=== PATIENT | female | born 1970 ===

== ENCOUNTER 2020-07-06 14:09 | Outpatient (REF) | payer OTHER, SELFPAY ==
[2020-07-06 14:31] LABS: COVID-19 Test Negative (Negative); IDNOW Serial# 55D5AD1C
== END 2020-07-06 14:10 | disposition home or self-care (01) ==
LOC: HO.EMPCOV 14:09
PROVIDERS: Visit Provider Internal Medicine
DX: Z20.822 Contact with and (suspected) exposure to COVID-19 (principal)
CPT/HCPCS: 36415; 87635; C9803

== ENCOUNTER 2020-07-12 14:09 | Emergency (ER) | payer MEDICAID, SELFPAY ==
[2020-07-12 14:16] VITALS: BP 147/90; PULSE 87; RESP 16; TEMP 36.8; O2SAT 100; BMI 31.2
== END 2020-07-12 18:22 | disposition left against medical advice (07) ==
PROVIDERS: Emergency Provider Emergency Medicine; PCP Internal Medicine
DX: R20.0 Anesthesia of skin (principal)
CPT/HCPCS: 99282

== ENCOUNTER 2020-08-01 11:13 | Outpatient (REF) | payer OTHER, SELFPAY ==
[2020-08-01 12:14] LABS: COVID-19 Test Negative (Negative)
== END 2020-08-01 11:14 | disposition home or self-care (01) ==
LOC: HO.EMPCOV 11:13
PROVIDERS: Visit Provider Internal Medicine
DX: Z20.822 Contact with and (suspected) exposure to COVID-19 (principal)
CPT/HCPCS: 36415; 87635; C9803

== ENCOUNTER 2020-08-02 15:45 | Outpatient (REF) | payer MEDICAID, SELFPAY | END 2020-08-02 15:46 | disposition home or self-care (01) | LOC: HO.MDS 15:45 | PROVIDERS: PCP Internal Medicine; Visit Provider Psychiatry & Neurology Neurology | DX: G37.3 Acute transverse myelitis in demyelinating disease of central nervous system (principal) | CPT/HCPCS: 96365; J2930 ==

== ENCOUNTER 2020-08-03 06:51 | Outpatient (REF) | payer MEDICAID, SELFPAY | END 2020-08-03 06:52 | disposition home or self-care (01) | LOC: HO.MDS 06:51 | PROVIDERS: Visit Provider Psychiatry & Neurology Neurology | DX: G37.3 Acute transverse myelitis in demyelinating disease of central nervous system (principal) | CPT/HCPCS: 96365; J2930 ==

== ENCOUNTER 2020-08-04 07:02 | Outpatient (REF) | payer MEDICAID, SELFPAY ==
[2020-08-04 09:58] LABS: Blood Urea Nitrogen 25 mg/dL (9-16); Estimated Glomerular Filt Rate > 60
== END 2020-08-04 07:03 | disposition home or self-care (01) ==
LOC: HO.MDS 07:02
PROVIDERS: PCP Internal Medicine; Visit Provider Psychiatry & Neurology Neurology
DX: G37.3 Acute transverse myelitis in demyelinating disease of central nervous system (principal)
CPT/HCPCS: 36415; 82565; 84520; 96365; J2930

== ENCOUNTER 2020-08-09 08:13 | Outpatient (REF) | payer OTHER, SELFPAY ==
[2020-08-09 08:31] LABS: COVID-19 Test Negative (Negative)
== END 2020-08-09 08:14 | disposition home or self-care (01) ==
LOC: HO.EMPCOV 08:13
PROVIDERS: Visit Provider Internal Medicine
DX: Z20.822 Contact with and (suspected) exposure to COVID-19 (principal)
CPT/HCPCS: 36415; 87635; C9803

== ENCOUNTER 2020-08-14 17:48 | Outpatient (REF) | payer OTHER, SELFPAY ==
--- NOTE | ~2020-08-14 | MR_ITS ---
MRI CERVICAL AND THORACIC SPINE WITH AND WITHOUT IV CONTRAST CLINICAL INFORMATION: Transverse myelitis. COMPARISON: Cervical spine radiographs 01/17/2020. Thoracic spine radiographs 04/16/2013. TECHNIQUE: Multiplanar multisequence MR imaging of the cervical and thoracic spine obtained without and following the administration of 10 mL of Gadavist intravenous contrast without complication. FINDINGS: CERVICAL SPINE MRI: Straightening the cervical lordosis. Mild retrosubluxation of C5 on C6. There is no bone marrow edema. There are no acute fractures. Craniocervical junction is intact. There are no enhancing intraosseous lesions. There is no pathologic intrathecal enhancement. Cervical arterial flow voids are maintained. No significant soft tissue findings. C2-C3: Slight annular disc bulge. No central canal stenosis and no foraminal stenosis. C3-C4: Small annular disc bulge. Uncovertebral joint spurring and facet arthropathy result in mild bilateral foraminal encroachment. No central canal stenosis. C4-C5: Shallow central disc protrusion flattens the ventral cord resulting in mild to moderate central canal stenosis. Uncovertebral joint hypertrophy and hypertrophic facet arthropathy result in severe left and moderate right foraminal stenosis. C5-C6: Broad-based central disc protrusion and ligamentum flavum thickening as well as retrosubluxation result in severe central canal stenosis and mass effect on the cervical spinal cord. Intramedullary T2 signal changes within the cord at this level. No associated enhancement. C6-C7: Shallow central disc protrusion mildly narrows the central canal. No foraminal stenosis. C7-T1: Disc contour is normal. No central canal stenosis and no foraminal stenosis. THORACIC SPINE MRI: Partially enhancing intramedullary T2 signal changes involving the thoracic spinal cord at the T2-T3 level. This finding is nonspecific with differential considerations including transverse myelitis, and otherwise nonspecific demyelinating lesion, or variety alternative intramedullary pathology. Follow-up advised. Moderate disc volume loss of the mid to lower thoracic levels. There is no bone marrow edema. There are no acute fractures. Multilevel endplate osteophytes. There are paracentral disc protrusions throughout the entire thoracic spine, the largest at the T5-T6, T7-T8, T8-T9, T9-T10, T10-T11, and T11-T12 levels that mildly narrow the central canal and slightly flatten the ventral cord at these levels. Disc osteophyte and facet arthropathy result in severe left-sided foraminal stenosis at T10-T11. MR/MR cervical spine wo/w con IMPRESSION: - Multilevel cervical spondylosis, greatest at C5-C6 where retrosubluxation and multifactorial degenerative changes result in severe central canal stenosis and significant mass effect on the cervical cord. There are intramedullary T2 signal changes within the cord at this level of indeterminate age. No associated enhancement. 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 - Partially enhancing intramedullary T2 signal changes involving the thoracic spinal cord at the T2-T3 level. This finding is nonspecific with differential considerations including transverse myelitis, and otherwise nonspecific demyelinating lesion, or variety alternative intramedullary pathology. Follow-up advised. - There are paracentral disc protrusions throughout the entire thoracic spine, the largest at the T5-T6, T7-T8, T8-T9, T9-T10, T10-T11, and T11-T12 levels that mildly narrow the central canal and slightly flatten the ventral cord at these levels. Disc osteophyte and facet arthropathy result in severe left-sided foraminal stenosis at T10-T11.
== END 2020-08-14 17:49 | disposition home or self-care (01) ==
LOC: HO.MRI 17:48
PROVIDERS: PCP Internal Medicine; Visit Provider Psychiatry & Neurology Neurology
DX: G37.3 Acute transverse myelitis in demyelinating disease of central nervous system (principal)
CPT/HCPCS: 72156; 72157; A9585

== ENCOUNTER 2020-08-29 08:09 | Outpatient (REF) | payer OTHER, SELFPAY ==
[2020-08-29 08:21] LABS: COVID-19 Test Positive (Negative)
== END 2020-08-29 08:10 | disposition home or self-care (01) ==
LOC: HO.EMPCOV 08:09
PROVIDERS: Visit Provider Internal Medicine
DX: Z20.822 Contact with and (suspected) exposure to COVID-19 (principal)
CPT/HCPCS: 36415; 87635; C9803

== ENCOUNTER 2020-09-14 16:18 | Outpatient (REF) | payer OTHER, SELFPAY ==
--- NOTE | ~2020-09-14 | MR_ITS ---
EXAMINATION: MR BRAIN WITHOUT AND WITH CONTRAST CLINICAL INFORMATION: Demyelinating disease. COMPARISON: CT head 03/29/2014, MRI brain 02/09/2007, MRI cervical spine 08/14/2020. TECHNIQUE: Multiplanar, multisequence MRI of the brain was obtained before and after the intravenous administration of 10 mL Gadavist. Demyelinating protocol sequences are obtained including sagittal FLAIR images. FINDINGS: A 9 mm x 2 mm nonenhancing juxtacortical T2 hyperintensity is present in the posterior left middle frontal lobe gyrus (series 6 image 17). Single punctate nonenhancing T2 hyperintensities (less than 3 mm) are present in the juxtacortical white matter of the left inferior frontal lobe and posterior right middle frontal lobe gyrus. 2 punctate nonenhancing T2 hyperintensities are present in the right inferior frontal lobe. No perivenular lesions are visualized. No lesions of the middle cerebellar peduncles are noted. No intracranial hemorrhage, tumors or acute infarcts are visualized. The ventricles and sulci are normal in size and configuration. Susceptibility weighted images reveal no evidence of acute or chronic hemorrhage within the brain parenchyma. The craniocervical junction and cerebellar tonsils are normal in configuration. No suspicious marrow abnormalities are identified. Partial visualization is made of minimal anterior endplate osteophytosis at C3-C4 and C4-C5. Convex inward configuration of the superior margin the pituitary is present consistent with an empty sella configuration which is a frequently encountered normal anatomic variation. Normal flow-related signal intensity is visualized in the major intracranial vessels and dural sinuses. The orbits and globes are normal in appearance making allowances for expected artifacts. No significant mucosal thickening or retained secretions are noted within the visualized paranasal sinuses, mastoid air cells and middle ear cavities. No abnormal enhancement of the brain is identified. MR/MR head/brain wo/w con IMPRESSION: 1. Minimal number of scattered nonenhancing punctate and subcentimeter white matter foci of signal alteration (T2 hyperintensity). These findings are of uncertain clinical significance and may represent minimal white matter chronic small vessel ischemic changes. Similar findings are a frequently encountered asymptomatic finding and are therefore of uncertain clinical significance. No specific evidence of demyelinating disease. No perivenular lesions or lesions of the middle cerebellar peduncles. Unenhanced and IV contrast enhanced MRI of the brain is otherwise normal.
== END 2020-09-14 16:19 | disposition home or self-care (01) ==
LOC: HO.MRI 16:18
PROVIDERS: Visit Provider Psychiatry & Neurology Neurology
DX: G37.9 Demyelinating disease of central nervous system, unspecified (principal)
CPT/HCPCS: 70553; A9585

== ENCOUNTER 2021-04-17 09:36 | Outpatient (REF) | payer OTHER, SELFPAY | END 2021-04-17 09:37 | disposition home or self-care (01) | LOC: HO.LAB 09:36 | PROVIDERS: Visit Provider Internal Medicine | DX: Z20.822 Contact with and (suspected) exposure to COVID-19 (principal) | CPT/HCPCS: C9803; U0003; U0005 ==

== ENCOUNTER 2022-10-19 03:08 | Emergency (ER) | payer OTHER, SELFPAY ==
[2022-10-19 03:09] VITALS: BP 132/77; PULSE 82; RESP 18; TEMP 36.1; O2SAT 96; BMI 36.7
[2022-10-19 04:20] VITALS: BP 115/66; PULSE 82; RESP 18; TEMP 36.7; O2SAT 96
[2022-10-19 04:48] LABS: MANUAL DIFF FLAG NO
[2022-10-19 04:49] LABS: Basophils Percent Auto 0.4 % (0-2); Eosinophils Absolute Auto 0.3 X10*3/uL (0.0-0.4); Eosinophils Percent Auto 2.7 % (0-4); Hemoglobin 12.2 g/dl (12.0-16.0); Imm Gran Abs Auto 0.03 X10*3/uL (0.00-0.03); Imm Gran Pct Auto 0.3 % (0.0-0.4); Lymphocytes Absolute Auto 2.5 X10*3/uL (1.2-4.9); Lymphocytes Percent Auto 24.9 % (20-40); Mean Corpuscular HGB Conc 33.9 g/dl (31.0-35.0); Mean Corpuscular Hemoglobin 29.1 pg (27.0-33.0); Mean Corpuscular Volume 85.9 fL (80.0-98.0); Mean Platelet Volume 10.5 fL (9.4-12.3); Monocytes Absolute Auto 0.9 X10*3/uL (0.1-1.2); Monocytes Percent Auto 8.7 % (2-11); Neutrophils Absolute Auto 6.3 x10*3/uL (2.0-8.3); Platelet Count 316 X10*3/uL (160-400); Red Blood Count 4.19 X10*6/uL (4.20-5.50); Red Cell Distribution Width 13.6 % (11.0-16.0)
[2022-10-19 04:56] LABS: Appearance Urine Clear; Color Urine Yellow; Glucose Urine UA Negative (Negative); Leukocyte Esterase Urine Negative (Negative); Nitrite Urine Negative (Negative); PH 5.5 (5.0-9.0); Specific Gravity - Urine >= 1.030 (1.005-1.025); UMIC TRIGGER UACC YES; Urine Blood Large (3+) (Negative); Urine Ketones Negative (Negative); Urine Protein Trace mg/dL (Neg-Trace)
[2022-10-19 04:59] LABS: Bacteria Urine 1+ (None Seen); Hyaline Casts Urine 0-2 /LPF (0-2); RBC Urine >20 /HPF (0-2); WBC Urine 0-5 /HPF (0-5)
[2022-10-19 05:02] LABS: Anion Gap 15 (12-20); Blood Urea Nitrogen 18 mg/dL (9-16); Calcium 10.4 mg/dL (8.4-10.2); Carbon Dioxide 26 mmol/L (22-29); Chloride 104 mmol/L (96-108); Creatinine Clr Calc Pharmacy 97.9; Estimated Glomerular Filt Rate > 60; Glucose Random 123 mg/dL (60-115); Potassium 3.7 mmol/L (3.3-5.1); Sodium 141 mmol/L (135-145)
--- NOTE | 2022-10-19 05:29 | PC.NURSE ---
Pt A&Ox4, reports constant pressure pain 8/10 to lower ABD pain radiating to L flank. Reports urinary frequency & urgency feeling bloated . Pt denies any fevers, reports some nausea, no V/D.
[2022-10-19 06:03] VITALS: BP 119/74; PULSE 76; RESP 18; TEMP 36.8; O2SAT 95
--- NOTE | 2022-10-19 06:35 | ED.FEMALEGU ---
HPI - Female Genitourinary General Chief complaint: Urogenital-Female Stated complaint: uti symptoms, back pain Time Seen by Provider: 10/19/22 06:34 Source: patient, RN notes reviewed and old records reviewed Mode of arrival: ambulatory History of Present Illness HPI Narrative: 52-year-old female past medical history hypertension, hypothyroid presenting to the ED complaining of lower abdominal/suprapubic pain, & urinary hesitancy/frequency x3 days. reports pain is constant but fluctuating in intensity with associated nausea. Denies fever, chills, vomiting, dysuria/hematuria Related Data Previous Rx's Medication Instructions Recorded gabapentin 300 mg capsule 300 mg PO BID 2 weeks #28 caps 07/15/20 cefuroxime axetil 250 mg tablet 250 mg PO BID 3 days #6 tabs 10/19/22 ketorolac 10 mg tablet 10 mg PO TID PRN pain 5 days #15 10/19/22 tabs tamsulosin 0.4 mg capsule (Flomax) 0.4 mg PO DAILY #14 caps 10/19/22 Allergies Allergy/AdvReac Type Severity Reaction Status Date / Time Iodinated Contrast Media Allergy Severe ITCHING; Unverified 01/06/20 14:39 [IV Dye, Iodine Containing] SEVERE VOMITING Review of Systems Review of Systems: Constitutional: No Fever, No Chills, No Fatigue, No Malaise ENT/Mouth: No Ear Pain, No sore throat, No Rhinorrhea, No Swallowing Difficulty Eyes: No Eye Pain, No Swelling, No Redness, No Vision Changes Cardiovascular: No Chest Pain, No SOB, No Edema, No Palpitations Respiratory: No Cough, No Sputum, No Dyspnea Gastrointestinal: + Nausea, No Vomiting, No Diarrhea, No Constipation, No Abdominal pain Genitourinary: No Dysuria, + Urinary Frequency, No Hematuria, No Urinary Incontinence/retention, + Urgency, No Flank Pain, No Urinary Flow Changes, + Hesitancy Musculoskeletal: No joint pain, No Myalgias, No Joint Swelling Skin: No Skin Lesions, No rash Neuro: No Weakness, No Dizziness, No Headache Yes all other systems are reviewed and are negative Constitutional: Constitutional: Reports as per [facility] Past Medical History Attestation statement: The following information was validated with the patient. Source: old records reviewed Medical History HTN (hypertension) Hyperthyroidism Social History Social History Alcohol intake: current Alcohol intake frequency: holidays/special occasions only Smoked in Last 30 Days: Yes Use of substances other than those prescribed or required for medical reasons: No Advance Directives: No Advance Directives Information Provided: Yes Patient : No Physical Exam Vital Signs: Vital Signs: Last Vital Signs Temp 97.9 F 10/19/22 07:03 Pulse 69 10/19/22 08:53 Resp 14 10/19/22 08:53 BP 118/76 10/19/22 08:53 Pulse Ox 95 10/19/22 08:53 O2 Del Method Room Air 10/19/22 08:53 BMI result Body Mass Index 36.7 Const: General: cooperative, healthy appearing and no acute distress Orientation/consciousness: patient oriented x3 Limitations: no limitations HEENT: Head: Yes normal to inspection and Yes atraumatic Ears: hearing grossly normal bilaterally General nose exam: Normal external nose present Face and sinus: Yes normal facial exam Eyes: General: appearance normal, both eyes and all related structures EOM: EOMs intact bilaterally Neck: Neck: Yes normal visual inspection and Yes no meningeal signs Resp: Effort & Inspection: normal respiratory effort and no respiratory distress Cardio: Rate: regular rate Heart sounds: S1 normal heart sound present and S2 normal heart sound present GI: Inspection: Yes normal to inspection Palpation (GI): Soft to palpation, Tenderness to palpation present (GI) suprapubicly; with no rebound tenderness, no guarding and not rigid : General: Yes no CVA tenderness Back/Spine/Pelvis: Back: no CVA tenderness Skin: Rashes: no rashes Wounds: no wounds Neuro: General: patient oriented x3, tone normal and no meningeal signs Gait exam (Neuro): Normal gait present Extrem: General: Yes normal to inspection Course Course Course Narrative: -0807--labs reassuring. UA with blood/RBCs, not infected CT abdomen pelvis wo IV con IMPRESSION: 4 mm partially obstructing left ureterovesical junction calculus with mild left hydronephrosis.? ? Fleischner guidelines were followed. > on re-evaluation patient appears comfortable, sleeping, states feels the urge to be however cannot urinate will obtain bladder scan -1 cc on bladder scan. Case discussed with Urology, Dr. Noel who recommended in addition to Toradol/Flomax, Ceftin 250 b.i.d. x3 days and follow-up in the office Results discussed with patient including worrisome signs and symptoms and strict return precautions, and when to return to the emergency department. They verbalized understanding and feel safe for discharge at this time. Medications Administered Discontinued Medications Generic Name Dose Route Start Last Admin Trade Name Freq PRN Reason Stop Dose Admin Ketorolac Tromethamine 30 mg 10/19/22 08:08 10/19/22 08:26 Ketorolac Tromethamine 30 Mg/Ml Vial IM 10/19/22 08:09 30 mg ONCE ONE Administration Tamsulosin HCl 0.4 mg 10/19/22 08:08 10/19/22 08:27 Tamsulosin Hcl 0.4 Mg Capsule PO 10/19/22 08:09 0.4 mg ONCE ONE Administration Medical Decision Making Medical Decision Making [facility] Narrative: 52-year-old female past medical history hypertension, hypothyroid presenting to the ED complaining of lower abdominal/suprapubic pain, & urinary hesitancy/frequency x3 days. On exam vital signs stable, NAD, nontoxic appearing, abdomen soft with mild suprapubic tenderness, no rebound or guarding, no CVAT. Concern for renal stone vs UTI/pyelo. Lower suspicion for appendicitis/diverticulitis, pancreatitis or cholecystitis/lithiasis Plan: Labs, UA, CT AP Please refer to course for remaining clinical decision making, interpretation of labs/imaging results, and discussions with consultants and/or family members. Differential Diagnosis Differential Diagnoses: The differential diagnosis associated with the presentation includes As above Admission/Observation Consideration of admission/observation: Escalation of care including admission/observation considered Lab Data [facility] Lab Attestation statement: I reviewed the patient's lab results. 10/19/22 04:43 10/19/22 04:43 Labs: Lab Results 10/19/22 10/19/22 10/19/22 Range/Units 04:43 04:43 04:50 WBC 10.0 (4.8-10.8) X10*3/uL RBC 4.19 L (4.20-5.50) X10*6/uL Hgb 12.2 (12.0-16.0) g/dl Hct 36.0 L (37.0-47.0) % MCV 85.9 (80.0-98.0) fL MCH 29.1 (27.0-33.0) pg MCHC 33.9 (31.0-35.0) g/dl RDW 13.6 (11.0-16.0) % Plt Count 316 (160-400) X10*3/uL MPV 10.5 (9.4-12.3) fL Immature Gran % (Auto) 0.3 (0.0-0.4) % Neut % (Auto) 63.0 (45-73) % Lymph % (Auto) 24.9 (20-40) % [place] % (Auto) 8.7 (2-11) % Eos % (Auto) 2.7 (0-4) % Baso % (Auto) 0.4 (0-2) % Lymph # (Auto) 2.5 (1.2-4.9) X10*3/uL [place] # (Auto) 0.9 (0.1-1.2) X10*3/uL Eos # (Auto) 0.3 (0.0-0.4) X10*3/uL Baso # (Auto) 0.0 (0.0-0.2) X10*3/uL Abs Immat Gran (auto) 0.03 (0.00-0.03) X10*3/uL Absolute Neuts (auto) 6.3 (2.0-8.3) x10*3/uL Absolute Nucleated RBC 0.000 (0.0-0.012) X10*3/uL Nucleated RBC % (auto) 0.0 (0.0-0.2) /100WBC Sodium 141 (135-145) mmol/L Potassium 3.7 (3.3-5.1) mmol/L Chloride 104 (96-108) mmol/L Carbon Dioxide 26 (22-29) mmol/L Anion Gap 15 (12-20) BUN 18 H (9-16) mg/dL Creatinine 0.76 (0.5-1.4) mg/dL Estim Creat Clear Calc 97.9 Estimated GFR > 60 Random Glucose 123 H (60-115) mg/dL Calcium 10.4 H (8.4-10.2) mg/dL Magnesium 1.8 (1.6-2.6) mg/dL Total Bilirubin 0.4 (0.0-1.0) mg/dL Direct Bilirubin 0.1 (0.0-0.5) mg/dL AST 14 (5-31) U/L ALT 20 (0-31) U/L Alkaline Phosphatase 88 (39-117) U/L Total Protein 7.1 (6.5-8.0) g/dL Albumin 4.2 (3.5-5.0) g/dL Lipase 36 (8-78) U/L Urine Color Yellow Urine Appearance Clear Urine pH 5.5 (5.0-9.0) Ur Specific [place] >= 1.030 H (1.005-1.025) Urine Protein Trace (Neg-Trace) mg/dL Urine Glucose (UA) Negative (Negative) mg/dL Urine Ketones Negative (Negative) mg/dL Urine Blood Large (3+) H (Negative) Urine Nitrite Negative (Negative) Ur Leukocyte Esterase Negative (Negative) Urine RBC >20 H (0-2) /HPF Urine WBC 0-5 (0-5) /HPF Ur Squamous Epith Cells 6-10 (0-2) /HPF Urine Bacteria 1+ (None Seen) Hyaline Casts 0-2 (0-2) /LPF Chlam trachomat DNA PCR N.gonorrhoeae DNA (PCR) 10/19/22 Range/Units 04:53 WBC (4.8-10.8) X10*3/uL RBC (4.20-5.50) X10*6/uL Hgb (12.0-16.0) g/dl Hct (37.0-47.0) % MCV (80.0-98.0) fL MCH (27.0-33.0) pg MCHC (31.0-35.0) g/dl RDW (11.0-16.0) % Plt Count (160-400) X10*3/uL MPV (9.4-12.3) fL Immature Gran % (Auto) (0.0-0.4) % Neut % (Auto) (45-73) % Lymph % (Auto) (20-40) % [place] % (Auto) (2-11) % Eos % (Auto) (0-4) % Baso % (Auto) (0-2) % Lymph # (Auto) (1.2-4.9) X10*3/uL [place] # (Auto) (0.1-1.2) X10*3/uL Eos # (Auto) (0.0-0.4) X10*3/uL Baso # (Auto) (0.0-0.2) X10*3/uL Abs Immat Gran (auto) (0.00-0.03) X10*3/uL Absolute Neuts (auto) (2.0-8.3) x10*3/uL Absolute Nucleated RBC (0.0-0.012) X10*3/uL Nucleated RBC % (auto) (0.0-0.2) /100WBC Sodium (135-145) mmol/L Potassium (3.3-5.1) mmol/L Chloride (96-108) mmol/L Carbon Dioxide (22-29) mmol/L Anion Gap (12-20) BUN (9-16) mg/dL Creatinine (0.5-1.4) mg/dL Estim Creat Clear Calc Estimated GFR Random Glucose (60-115) mg/dL Calcium (8.4-10.2) mg/dL Magnesium (1.6-2.6) mg/dL Total Bilirubin (0.0-1.0) mg/dL Direct Bilirubin (0.0-0.5) mg/dL AST (5-31) U/L ALT (0-31) U/L Alkaline Phosphatase (39-117) U/L Total Protein (6.5-8.0) g/dL Albumin (3.5-5.0) g/dL Lipase (8-78) U/L Urine Color Urine Appearance Urine pH (5.0-9.0) Ur Specific [place] (1.005-1.025) Urine Protein (Neg-Trace) mg/dL Urine Glucose (UA) (Negative) mg/dL Urine Ketones (Negative) mg/dL Urine Blood (Negative) Urine Nitrite (Negative) Ur Leukocyte Esterase (Negative) Urine RBC (0-2) /HPF Urine WBC (0-5) /HPF Ur Squamous Epith Cells (0-2) /HPF Urine Bacteria (None Seen) Hyaline Casts (0-2) /LPF Chlam trachomat DNA PCR Cancelled N.gonorrhoeae DNA (PCR) Cancelled Radiology Impression Discussion of test interpretation with radiology: I have reviewed the radiologist's reading. External Record Review External record reviewed: Inpatient record, Office record, Outpatient record, Prior outpatient labs, Prior outpatient radiology, Primary care record and Outside ED record Tests considered The following testing was considered but not selected: As above Discharge Plan Discharge Clinical Impression: Calculus of ureterovesical junction (UVJ) Patient Disposition: Home, Self-Care Instructions: Ureteral Stones (ED) Additional Instructions: You have a partially obstructing stone of her left kidney Flomax will help dilate the ureter to aid with passing Toradol as anti-inflammatory/pain medication, take with food Ceftin is an antibiotic Need to follow-up with the specialists, urology, in 1 week His symptoms persist or worsen you develop constant worsening pain, persistent nausea/vomiting, fever, or your unable to urinate return to the ED Prescriptions: New cefuroxime axetil 250 mg tablet 250 mg PO BID 3 Days Qty: 6 0RF ketorolac 10 mg tablet 10 mg PO TID PRN (Reason: pain) 5 Days Qty: 15 0RF tamsulosin [Flomax] 0.4 mg capsule 0.4 mg PO DAILY Qty: 14 0RF No Action gabapentin 300 mg capsule 300 mg PO BID 14 Days Qty: 28 0RF Referrals: [facility] [Provider Group] Interventions: ED Discharge Assessment Last Done: 10/19/22 10:08 Discharge Date/Time: 10/19/22 10:08
[2022-10-19 07:00] LABS: Alanine Aminotransferase 20 U/L (0-31); Albumin Level 4.2 g/dL (3.5-5.0); Alkaline Phosphatase 88 U/L (39-117); Aspartate Amino Transferase 14 U/L (5-31); Bilirubin Direct 0.1 mg/dL (0.0-0.5); Bilirubin Total 0.4 mg/dL (0.0-1.0); Lipase 36 U/L (8-78); Magnesium 1.8 mg/dL (1.6-2.6); Total Protein 7.1 g/dL (6.5-8.0)
[2022-10-19 07:03] VITALS: BP 126/73; PULSE 81; RESP 18; TEMP 36.6; O2SAT 99
--- NOTE | 2022-10-19 07:15 | PC.NURSE ---
pt alert and oriented, skin appropriate for ethnicity, respirations even and unlabored, pt reports frequency/urgency/pressure when she need to void but when voiding only few drops come out, abd appears slightly distended/firm but reports no pain at this time. performed a bladder scan and 174ml of urine post voided. vs stable at this time
[2022-10-19] MEDS: Ketorolac Tromethamine 30 MG/ML VIAL IM (08:26)
[2022-10-19] MEDS: Tamsulosin HCL 0.4 MG CAPSULE PO (08:27)
[2022-10-19 08:53] VITALS: BP 118/76; PULSE 69; RESP 14; O2SAT 95
== END 2022-10-19 10:08 | disposition home or self-care (01) ==
PROVIDERS: Physician Assistant; Emergency Provider Emergency Medicine Emergency Medical Services; PCP Internal Medicine
DX: N13.2 Hydronephrosis with renal and ureteral calculous obstruction (principal); I10 Essential (primary) hypertension
CPT/HCPCS: 0353U; 36415; 51798; 74176; 80048; 80076; 81001; 83690; 83735; 85025; 96372; 99284; 99285; J1885

== ENCOUNTER 2022-11-07 10:43 | Emergency (ER) | payer OTHER, SELFPAY ==
[2022-11-07 10:51] VITALS: BMI 40.0
== END 2022-11-07 11:12 | disposition left against medical advice (07) ==
PROVIDERS: Emergency Provider Emergency Medicine; PCP Internal Medicine
DX: R22.1 Localized swelling, mass and lump, neck (principal)
CPT/HCPCS: 99281

== ENCOUNTER 2022-11-07 16:11 | Emergency (ER) | payer OTHER, SELFPAY ==
--- NOTE | ~2022-11-07 | US_ITS ---
EXAMINATION: US SOFT TISSUE NECK CLINICAL INFORMATION: Pain and swelling right sublingual region. COMPARISON: None available. TECHNIQUE: Limited ultrasound imaging of right sublingual region is performed.. FINDINGS: There is a 0.6 x 0.7 x 0.5 cm lymph nodes seen in the right sublingual space. No additional lymph nodes seen. Bilateral submandibular glands are slightly heterogeneous and hypervascular. No focal lesion seen. US/US soft tiss head and/or neck IMPRESSION: 1. Benign-appearing lymph node in right sublingual space. Bilateral submandibular glands are symmetrical but slightly heterogeneous. 2. If clinically indicated further evaluation of the neck soft tissues and nodes may be performed with CT soft tissue neck with intravenous contrast.
--- NOTE | ~2022-11-07 | CT_ITS ---
EXAMINATION: CT ABDOMEN AND PELVIS WITHOUT CONTRAST CLINICAL INFORMATION: Flank pain. COMPARISON: CT abdomen/pelvis 10/19/2022. TECHNIQUE: Multidetector volumetric imaging was performed from the superior aspect of the liver through the pubic symphysis. Sagittal and coronal reformatted images were obtained on the technologist's workstation. This CT examination was performed using dose optimization techniques as appropriate, variously including the following: *Automated exposure control *Adjustment of mA and/or kV according to patient size (this includes techniques or standardized protocols for targeted exams where dose is matched to indication/reason for exam; i.e. extremities or head) *Use of iterative reconstruction technique DLP: 686 mGy-cm FINDINGS: The lack of intravenous contrast limits evaluation of the solid visceral organs including the liver, spleen, pancreas, and kidneys. LUNG BASES: There is a 0.2 cm solid nodule in the right lower lobe image 69 series 3. There are a few tiny calcified granulomas. No focal consolidation or pleural effusion. LIVER, GALLBLADDER, AND BILIARY TREE: The liver is enlarged measuring 19.6 cm craniocaudally with decreased attenuation of the parenchyma suggesting hepatic steatosis. Otherwise, it is normal in shape with no discrete focal lesion. No biliary ductal dilatation. The gallbladder is unremarkable with no evidence of radiopaque gallstones, gallbladder wall thickening, or obvious pericholecystic inflammatory changes. PANCREAS: Limited noncontrast examination. Subtle fat stranding at the root of the small bowel mesentery, coronal image 51 series 5. SPLEEN: Unremarkable. ADRENAL GLANDS: Unremarkable. KIDNEYS AND URETERS: Nonobstructive punctate calculus in the mid left kidney. No hydronephrosis or perinephric fat stranding. BLADDER: Unremarkable. GASTROINTESTINAL TRACT: The stomach and the small bowel are nondilated. Normal appendix. No pericolonic inflammatory changes. No evidence of bowel obstruction. ABDOMINAL WALL: No significant hernia is appreciated. LYMPH NODES: No lymphadenopathy. VASCULAR: Normal caliber abdominal aorta. PELVIC VISCERA: Hysterectomy. High riding ovaries. OSSEOUS STRUCTURES: No acute or aggressive appearing osseous abnormalities. CT/CT abdomen pelvis wo IV con IMPRESSION: 1. Subtle fat stranding at the root of the small bowel mesentery which is fairly nonspecific but could be seen with early pancreatitis, correlate clinically. 2. Nonobstructive punctate calculus in the mid left kidney. 3. Hepatomegaly and hepatic steatosis. 4. There is a 0.2 cm solid nodule in the right lower lobe. Assuming patient has no history of malignancy, recommend follow-up per Fleischner Society recommendations. According to the UPDATED 2017 Fleischner Society recommendations, the advised followup imaging for solid nodules < 6 mm is: LOW RISK PATIENT: No routine follow up. HIGH RISK PATIENT: Optional CT at 12 months. Fleischner guidelines were followed.
[2022-11-07 16:37] VITALS: BP 149/91; PULSE 89; RESP 18; TEMP 36.8; O2SAT 97; BMI 36.2
--- NOTE | 2022-11-07 16:38 | ED.GENADULT ---
HPI - General Adult General Chief complaint: General Medical Stated complaint: possible infection Time Seen by Provider: 11/07/22 20:35 Source: patient Mode of arrival: ambulatory Limitations: no limitations History of Present Illness HPI narrative: 52 year old female with PMH of kidney stones presenting today with a chief complaint of chills, bilateral lower back pain,swollen lymph node, and subjective fever, as well as a blister on her upper lip The patient reports feeling feverish for the past 3 days but denies taking temperature at home She admits to taking Tylenol early this morning but has not taken anything else throughout the day She was seen at [facility] on 10/19/2022 for calculus of ureterovesical junction and reports concern that she may have not passed the stone She denies hematuria, dysuria, urinary frequency or hesitancy She was referred to the ED by her PCP for concern for sepsis due to her previous obstructive uropathy and reported fevers Related Data Previous Rx's Medication Instructions Recorded gabapentin 300 mg capsule 300 mg PO BID 2 weeks #28 caps 07/15/20 cefuroxime axetil 250 mg tablet 250 mg PO BID 3 days #6 tabs 10/19/22 ketorolac 10 mg tablet 10 mg PO TID PRN pain 5 days #15 10/19/22 tabs tamsulosin 0.4 mg capsule (Flomax) 0.4 mg PO DAILY #14 caps 10/19/22 Allergies Allergy/AdvReac Type Severity Reaction Status Date / Time Iodinated Contrast Media Allergy Severe ITCHING; Verified 11/07/22 16:37 [IV Dye, Iodine Containing] SEVERE VOMITING Review of Systems Constitutional: Constitutional: Reports as per HPI, Reports chills, Reports fever(s), Reports headache(s) and Reports weakness ENT: Reports facial pain, Reports headache(s) and Reports lip swelling (Right upper lip blister) Comments: swollen submandibular lymph node Cardiovascular: Cardiovascular: Denies chest pain and Denies dyspnea Respiratory: Respiratory: Denies cough and Denies dyspnea Gastrointestinal: Gastrointestinal: Denies abdominal pain, Denies constipation, Denies diarrhea, Denies nausea and Denies vomiting Genitourinary: Genitourinary: Denies hematuria, Denies difficulty voiding, Denies dysuria, Denies pelvic pain, Denies urinary hesitancy and Denies urinary urgency Musculoskeletal: Musculoskeletal: Reports back pain and Denies stiffness Neurologic: Reports headache(s) and Reports weakness Allergic/Immunologic: Allergic/Immunologic: Reports lip swelling (Right upper lip blister) PMFSH Past Medical History Medical History HTN (hypertension) Hyperthyroidism Social History Social History Alcohol intake: current Alcohol intake frequency: holidays/special occasions only Advance Directives: No Advance Directives Information Provided: Yes Physical Exam ED Vital Signs: Vital Signs - 24 hr 11/07/22 16:37 11/07/22 20:31 Temperature 98.2 F 98.4 F Pulse Rate 89 81 Respiratory Rate 18 18 Blood Pressure 149/91 H 135/98 H Pulse Oximetry 97 99 Oxygen Delivery Method Room Air BMI result Body Mass Index 36.2 Const General: healthy appearing, comfortable, no acute distress, alert and awake Nutritional Appearance: well nourished Orientation/consciousness: patient oriented x3 HENMT Other: Cold sore with mild adjacent edema without erythema Head: Yes normocephalic and Yes atraumatic Teeth and gingiva: dentition normal Throat: Yes posterior oropharynx normal (No evidence of Steve's angina) Eyes Eyelids: Yes eyelids normal Conjunctivae: conjunctivae normal Sclerae: sclerae normal Corneas: corneas normal Pupils: Equal, round and reactive pupils present EOM: EOMs intact bilaterally Neck Other: swollen R submandibular lymoh node Neck: Yes anterior neck swelling, Yes tender and Yes submandibular swelling Resp Effort & Inspection: normal respiratory effort, able to speak in complete sentences, no audible wheezes and not labored Auscultation: clear to auscultation bilaterally GI Inspection: No distended Palpation (GI): Soft to palpation, not firm, Tenderness to palpation present (GI), no guarding and not rigid General: No no CVA tenderness Back/Spine/Pelvis Back: No no CVA tenderness and No back tenderness Cervical Spine: cervical ROM normal Skin General skin exam: no rashes or lesions noted and elasticity normal Lesions: no lesions Rashes: no rashes Neuro General: patient oriented x3 Cranial nerves: Yes Equal, round and reactive pupils present Extrem General: Yes full ROM Course Course Course Narrative: This is an RME: Additional HPI, ROS, PE not included below will be deferred to primary provider. This is a 52-year-old female, with a hx of ?hypertension, hypothyroid, and diabetes, presenting to the emergency department with complaints of bilateral low back pain, chills and fevers days. Patient was seen on 10/19/22 where she was diagnosed with a kidney stone, was discharged on cefuroxime, Toradol, and Flomax. She has completed these medications however reports that 3 days ago she started to have fevers, low back pain, and fever blister. Patient denies any urinary symptoms, headache, nausea and vomiting. She checked in at the emergency department today however her primary care physician called her and told her to come to his office. They did blood cultures at the appointment, denies any other blood work performed. She was told to come to the ER as they could not perform a CT scan. Plan: Labs, UA ordered. Reevaluation(s) Reevaluation #1: Discussed patient's workup with her, she has no evidence of obstructive uropathy, no evidence of sepsis. I discussed the 2 mm right lung nodule with the patient. Her CT scan shows mild fat stranding that could be concerning for early pancreatitis. The patient has no epigastric pain tenderness, nausea or vomiting. This is felt to be less likely. The patient's ultrasound shows a benign-appearing submandibular lymph node without concerning features. This was all discussed with the patient and she will follow-up with her PCP Time: 22:22 Medications Administered Discontinued Medications Generic Name Dose Route Start Last Admin Trade Name Freq PRN Reason Stop Dose Admin Ibuprofen 600 mg 11/07/22 22:00 11/07/22 22:13 Ibuprofen 600 Mg Tablet PO 11/07/22 22:01 600 mg ONCE ONE Administration Medical Decision Making Medical Decision Making [facility] Narrative: Patient has no significant leukocytosis, no left shift. Chemistry within normal limits, renal function within normal limits. Will get a CT scan of the abdomen pelvis per her PCP request. The patient is afebrile with stable vital signs, no evidence of sepsis Differential Diagnosis Viral Syndrome Sinusitis Cellulitis UTI Sepsis Pyelonephritis Cold sore Herpes simplex virus Lab Data [facility] Lab Attestation statement: I reviewed the patient's lab results. (No leukocytosis or significant anemia. No electrolyte abnormalities. Normal renal function) 11/07/22 16:58 11/07/22 16:58 Labs: Lab Results 11/07/22 11/07/22 11/07/22 Range/Units 16:49 16:49 16:58 WBC 10.0 (4.8-10.8) X10*3/uL RBC 4.76 (4.20-5.50) X10*6/uL Hgb 13.6 (12.0-16.0) g/dl Hct 41.0 (37.0-47.0) % MCV 86.1 (80.0-98.0) fL MCH 28.6 (27.0-33.0) pg MCHC 33.2 (31.0-35.0) g/dl RDW 13.2 (11.0-16.0) % Plt Count 390 (160-400) X10*3/uL MPV 10.8 (9.4-12.3) fL Immature Gran % (Auto) 0.5 H (0.0-0.4) % Neut % (Auto) 62.1 (45-73) % Lymph % (Auto) 26.8 (20-40) % Barnes % (Auto) 8.3 (2-11) % Eos % (Auto) 2.0 (0-4) % Baso % (Auto) 0.3 (0-2) % Lymph # (Auto) 2.7 (1.2-4.9) X10*3/uL Barnes # (Auto) 0.8 (0.1-1.2) X10*3/uL Eos # (Auto) 0.2 (0.0-0.4) X10*3/uL Baso # (Auto) 0.0 (0.0-0.2) X10*3/uL Abs Immat Gran (auto) 0.05 H (0.00-0.03) X10*3/uL Absolute Neuts (auto) 6.2 (2.0-8.3) x10*3/uL Absolute Nucleated RBC 0.000 (0.0-0.012) X10*3/uL Nucleated RBC % (auto) 0.0 (0.0-0.2) /100WBC Sodium (135-145) mmol/L Potassium (3.3-5.1) mmol/L Chloride (96-108) mmol/L Carbon Dioxide (22-29) mmol/L Anion Gap (12-20) BUN (9-16) mg/dL Creatinine (0.5-1.4) mg/dL Estim Creat Clear Calc Estimated GFR Random Glucose (60-115) mg/dL Calcium (8.4-10.2) mg/dL Total Bilirubin (0.0-1.0) mg/dL Direct Bilirubin (0.0-0.5) mg/dL AST (5-31) U/L ALT (0-31) U/L Alkaline Phosphatase (39-117) U/L Total Protein (6.5-8.0) g/dL Albumin (3.5-5.0) g/dL Urine Color Yellow Urine Appearance Clear Urine pH 6.5 (5.0-9.0) Ur Specific [place] 1.020 (1.005-1.025) Urine Protein Negative (Neg-Trace) mg/dL Urine Glucose (UA) Negative (Negative) mg/dL Urine Ketones Negative (Negative) mg/dL Urine Blood Negative (Negative) Urine Nitrite Negative (Negative) Ur Leukocyte Esterase Negative (Negative) Urine Test NEGATIVE (NEGATIVE) 11/07/22 Range/Units 16:58 WBC (4.8-10.8) X10*3/uL RBC (4.20-5.50) X10*6/uL Hgb (12.0-16.0) g/dl Hct (37.0-47.0) % MCV (80.0-98.0) fL MCH (27.0-33.0) pg MCHC (31.0-35.0) g/dl RDW (11.0-16.0) % Plt Count (160-400) X10*3/uL MPV (9.4-12.3) fL Immature Gran % (Auto) (0.0-0.4) % Neut % (Auto) (45-73) % Lymph % (Auto) (20-40) % Barnes % (Auto) (2-11) % Eos % (Auto) (0-4) % Baso % (Auto) (0-2) % Lymph # (Auto) (1.2-4.9) X10*3/uL Barnes # (Auto) (0.1-1.2) X10*3/uL Eos # (Auto) (0.0-0.4) X10*3/uL Baso # (Auto) (0.0-0.2) X10*3/uL Abs Immat Gran (auto) (0.00-0.03) X10*3/uL Absolute Neuts (auto) (2.0-8.3) x10*3/uL Absolute Nucleated RBC (0.0-0.012) X10*3/uL Nucleated RBC % (auto) (0.0-0.2) /100WBC Sodium 136 (135-145) mmol/L Potassium 3.9 (3.3-5.1) mmol/L Chloride 102 (96-108) mmol/L Carbon Dioxide 22 (22-29) mmol/L Anion Gap 16 (12-20) BUN 11 (9-16) mg/dL Creatinine 0.68 (0.5-1.4) mg/dL Estim Creat Clear Calc 108.5 Estimated GFR > 60 Random Glucose 108 (60-115) mg/dL Calcium 10.5 H (8.4-10.2) mg/dL Total Bilirubin 0.4 (0.0-1.0) mg/dL Direct Bilirubin 0.1 (0.0-0.5) mg/dL AST 15 (5-31) U/L ALT 20 (0-31) U/L Alkaline Phosphatase 86 (39-117) U/L Total Protein 7.8 (6.5-8.0) g/dL Albumin 4.7 (3.5-5.0) g/dL Urine Color Urine Appearance Urine pH (5.0-9.0) Ur Specific [place] (1.005-1.025) Urine Protein (Neg-Trace) mg/dL Urine Glucose (UA) (Negative) mg/dL Urine Ketones (Negative) mg/dL Urine Blood (Negative) Urine Nitrite (Negative) Ur Leukocyte Esterase (Negative) Urine Test (NEGATIVE) Independent Interpretation I performed an independent interpretation of an: CT Scan Radiology Impression Discussion of test interpretation with radiology: I have reviewed the radiologist's reading. Radiologist Impression: Subtle fat stranding at the root of the small bowel mesentery which is showing nonspecific but could be seen with early pancreatitis. Nonobstructive punctate calculus in the left mid kidney. Hepatomegaly. 2 mm right lower lung nodule Discharge Plan Discharge Clinical Impression: Cold sore, Lymphadenopathy Patient Disposition: Home, Self-Care Instructions: Lymphadenopathy (ED) Additional Instructions: You may continue to use Abreva for your cold sore The lymph node underneath her neck does not appear concerning and may be related to the cold sore Your CT scan showed a 2 mm right lung nodule that you may follow-up with your primary doctor You do have 1 very small kidney stone still in the left kidney that is not causing any issues We did not find any signs of active bacterial infection and you are not septic Follow-up with your primary doctor Use Motrin/Tylenol for pain. You may use warm compresses for the swollen lymph node Prescriptions: No Action cefuroxime axetil 250 mg tablet 250 mg PO BID 3 Days Qty: 6 0RF ketorolac 10 mg tablet 10 mg PO TID PRN (Reason: pain) 5 Days Qty: 15 0RF tamsulosin [Flomax] 0.4 mg capsule 0.4 mg PO DAILY Qty: 14 0RF gabapentin 300 mg capsule 300 mg PO BID 14 Days Qty: 28 0RF Stand Alone Forms: Work/School Release
[2022-11-07 16:58] LABS: UPreg QC Valid YES; Urine Pregnancy NEGATIVE (NEGATIVE)
[2022-11-07 17:00] LABS: Appearance Urine Clear; Color Urine Yellow; Glucose Urine UA Negative (Negative); Leukocyte Esterase Urine Negative (Negative); Nitrite Urine Negative (Negative); PH 6.5 (5.0-9.0); Urine Blood Negative (Negative); Urine Ketones Negative (Negative); Urine Protein Negative (Neg-Trace)
[2022-11-07 17:02] LABS: MANUAL DIFF FLAG NO
[2022-11-07 17:04] LABS: Basophils Percent Auto 0.3 % (0-2); Eosinophils Absolute Auto 0.2 X10*3/uL (0.0-0.4); Hemoglobin 13.6 g/dl (12.0-16.0); Imm Gran Abs Auto 0.05 X10*3/uL (0.00-0.03); Imm Gran Pct Auto 0.5 % (0.0-0.4); Lymphocytes Absolute Auto 2.7 X10*3/uL (1.2-4.9); Lymphocytes Percent Auto 26.8 % (20-40); Mean Corpuscular HGB Conc 33.2 g/dl (31.0-35.0); Mean Corpuscular Hemoglobin 28.6 pg (27.0-33.0); Mean Corpuscular Volume 86.1 fL (80.0-98.0); Mean Platelet Volume 10.8 fL (9.4-12.3); Monocytes Absolute Auto 0.8 X10*3/uL (0.1-1.2); Monocytes Percent Auto 8.3 % (2-11); Neutrophils Absolute Auto 6.2 x10*3/uL (2.0-8.3); Neutrophils Percent Auto 62.1 % (45-73); Platelet Count 390 X10*3/uL (160-400); Red Blood Count 4.76 X10*6/uL (4.20-5.50); Red Cell Distribution Width 13.2 % (11.0-16.0)
[2022-11-07 19:29] LABS: Alanine Aminotransferase 20 U/L (0-31); Albumin Level 4.7 g/dL (3.5-5.0); Alkaline Phosphatase 86 U/L (39-117); Anion Gap 16 (12-20); Aspartate Amino Transferase 15 U/L (5-31); Bilirubin Direct 0.1 mg/dL (0.0-0.5); Bilirubin Total 0.4 mg/dL (0.0-1.0); Blood Urea Nitrogen 11 mg/dL (9-16); Calcium 10.5 mg/dL (8.4-10.2); Carbon Dioxide 22 mmol/L (22-29); Chloride 102 mmol/L (96-108); Creatinine Clr Calc Pharmacy 108.5; Estimated Glomerular Filt Rate > 60; Glucose Random 108 mg/dL (60-115); Potassium 3.9 mmol/L (3.3-5.1); Sodium 136 mmol/L (135-145); Total Protein 7.8 g/dL (6.5-8.0)
[2022-11-07 20:31] VITALS: BP 135/98; PULSE 81; RESP 18; TEMP 36.9; O2SAT 99
[2022-11-07] MEDS: Ibuprofen 600 MG TABLET PO (22:13)
== END 2022-11-07 22:46 | disposition home or self-care (01) ==
PROVIDERS: Physician Assistant Medical; Emergency Provider Emergency Medicine; PCP Internal Medicine
DX: B00.1 Herpesviral vesicular dermatitis (principal); R59.1 Generalized enlarged lymph nodes; R91.8 Other nonspecific abnormal finding of lung field
CPT/HCPCS: 36415; 74176; 76536; 80048; 80076; 81003; 81025; 85025; 99283; 99284

== ENCOUNTER 2023-11-18 05:56 | Emergency (ER) | payer BC, SELFPAY ==
--- NOTE | ~2023-11-18 | XR_ITS ---
EXAMINATION: XR LUMBOSACRAL SPINE CLINICAL INFORMATION: Back pain COMPARISON: CT abdomen and pelvis of November 07, 2022 TECHNIQUE: Three views of the lumbosacral spine. FINDINGS: Mild rightward curvature of the lumbar spine. There are 5 nonrib-bearing lumbar-type vertebral bodies. Facet arthritis in the lower spine. Moderate multilevel lumbar spondylosis most notable at L5-S1 with loss of disc space height and possible spondylolysis. XR/XR lumbar spine 2-3V IMPRESSION: Moderate multilevel lumbar spondylosis most notable at L5-S1 with loss of disc space height and possible spondylolysis. This study was presented today November 18, 2023 for interpretation. Stat results provided at this time as requested by referring provider.
[2023-11-18 06:04] VITALS: BP 122/75; PULSE 77; RESP 18; TEMP 36.9; O2SAT 95; BMI 37.5
[2023-11-18 06:13] VITALS: BP 141/83; PULSE 78; RESP 14; TEMP 36.7; O2SAT 98
--- NOTE | 2023-11-18 07:50 | ED_ITS ---
HPI - Back Pain/Injury General Chief Complaint: Back Pain/Injury Stated Complaint: sciatic pain 5x days Time Seen by Provider: 11/18/23 07:40 Source: patient Mode of arrival: ambulatory Limitations: no limitations History of Present Illness ED Provider: DR. Oseguera HPI Narrative: 53-year-old female history of hypertension, DM, thyroid disease presented to the ED for evaluation of back pain radiating to the left leg for 5 days. Patient is known to have chronic back pain started to get severe back pain 5 days ago now is radiating to left leg patient feel tingling and numbness over the left thigh and anterior aspect of the left leg, no weakness, no urinary incontinence, no dysuria, no frequency urination, no stool incontinence. No fever, history of IV drug abuse. Related Data Previous Rx's ?Medication ?Instructions ?Recorded gabapentin 300 mg capsule 300 mg PO BID 2 weeks #28 caps 07/15/20 cefuroxime axetil 250 mg tablet 250 mg PO BID 3 days #6 tabs 10/19/22 ketorolac 10 mg tablet 10 mg PO TID PRN pain 5 days #15 10/19/22 tabs tamsulosin 0.4 mg capsule (Flomax) 0.4 mg PO DAILY #14 caps 10/19/22 oxycodone 5 mg tablet 5 mg PO BID PRN pain #5 tabs 11/18/23 Allergies Allergy/AdvReac Type Severity Reaction Status Date / Time Iodinated Contrast Media Allergy Severe ITCHING; Verified 11/18/23 06:07 [IV Dye, Iodine Containing] SEVERE VOMITING Review of Systems Review of Systems: All other systems are reviewed and are negative Constitutional: Reports as per HPI and Reports no additional constitutional complaints Eyes: Reports as per HPI and Reports no additional eye complaints Reports system reviewed and no additional complaints, except as documented Cardiovascular: Reports as per HPI and Reports no additional cardiovascular complaints Respiratory: Reports as per HPI and Reports no additional respiratory complaints Gastrointestinal: Reports as per HPI and Reports no additional gastrointestinal complaints Genitourinary: Reports no additional female genitourinary complaints Musculoskeletal: Reports no additional musculoskeletal complaints Skin/Breast: Reports system reviewed and no additional complaints, except as docu Psychiatric: Reports no additional psychiatric complaints Endocrine: Reports no additional endocrine complaints Hematologic/Lymphatic: Reports no additional hematologic/lymphatic complaints Allergic/Immunologic: Reports no additional allergic/immunologic complaints Reports system reviewed and no additional complaints, except as documented and Reports Abnormal speech present [facility] Past Medical History Medical History Hyperthyroidism HTN (hypertension) Social History Social History Alcohol intake: current Alcohol intake frequency: holidays/special occasions only Advance Directives: No Physical Exam Vital Signs: Vital Signs: Last Vital Signs Temp 98.2 F 11/18/23 10:12 Pulse 61 11/18/23 10:12 Resp 18 11/18/23 10:12 BP 119/75 11/18/23 10:12 Pulse Ox 98 11/18/23 10:12 O2 Del Method Room Air 11/18/23 10:12 BMI result Body Mass Index 37.5 Vital signs have been reviewed and appear to be correct. Blood pressure elevated. Heart rate normal. Respiratory rate normal. Temperature normal. Oxygen saturation normal. Appearance: Alert. Oriented X3. No acute distress. Head: Normal external exam. Normocephalic. Atraumatic. No Abbott signs noted. No raccoon eyes noted Eyes: PERRLA. EOMI. Conjunctiva and sclera normal. Eyelids normal. ENT: TM's Normal. Pharynx normal. Uvula midline. Moist mucous membranes. No trismus noted. No drooling noted. No muffled voice noted. Neck: Normal inspection. Neck supple. FROM. No adenopathy. Thyroid Normal. No meningeal signs. No neck mass noted. CVS: Normal heart rate and rhythm. Heart sound normal. No murmurs noted. Pulses normal throughout. Respiratory: No respiratory distress. Painless inspiration. Breath sounds normal. No wheezes/rales/rhonchi noted. Chest nontender. No accessory muscle usage noted or decreased air movement noted. Abdomen: Soft and nontender. Bowel sounds normal in all 4 quadrants. No distention noted. No organomegaly noted. No visible injury noted. Back: No CVA tenderness. Full range of motion noted. Skin: Skin warm and dry. Normal skin color. Normal skin turgor. No rashes/lesions/lacerations noted. Extremities: No lower extremity edema. Extremities exhibit normal range of motion. Extremities nontender. Neuro: Oriented X 3. Cranial nerve exam: II-XII are grossly intact No motor deficit. No sensory deficit. Reflexes normal. Perianal sensation is intact. Course Reevaluation(s) Reevaluation #1: 53-year-old female came in with low back pain radiating to the left leg, no signs to suggest cauda equina or neurological deficit, no incontinence, able to ambulate. Patient now feels better after was given oxycodone in the emergency department. Will discharge the patient on oxycodone, rest, heating pad, refrain from strenuous activity and heavy lifting. Time: 11:02 Medications Administered Discontinued Medications Generic Name Dose Route Start Last Admin Trade Name Freq PRN Reason Stop Dose Admin Ibuprofen 600 mg 11/18/23 07:49 11/18/23 08:31 Ibuprofen 600 Mg Tablet PO 11/18/23 07:50 600 mg ONCE ONE Administration Oxycodone HCl 5 mg 11/18/23 07:49 11/18/23 08:31 Oxycodone Hcl Immed Release 5 Mg Tablet PO 11/18/23 07:50 5 mg ONCE ONE Administration Medical Decision Making Differential Diagnosis Differential Diagnoses: The differential diagnosis associated with the presentation includes (Sciatica, UTI, cauda equina, neurological deficit, .) Admission/Observation Consideration of admission/observation: Escalation of care including admission/observation considered Lab Data MDM Lab Attestation statement: I reviewed the patient's lab results. Labs: Lab Results 11/18/23 Range/Units 08:00 Urine Color Yellow Urine Appearance Clear Urine pH 5.5 (5.0-9.0) Ur Specific [place] 1.020 (1.005-1.025) Urine Protein Negative (Neg-Trace) mg/dL Urine Glucose (UA) Negative (Negative) mg/dL Urine Ketones Negative (Negative) mg/dL Urine Blood Negative (Negative) Urine Nitrite Negative (Negative) Ur Leukocyte Esterase Negative (Negative) Urine Test NEGATIVE (NEGATIVE) Independent Interpretation I performed an independent interpretation of an: Plain X-Ray (Lumbar spine:Moderate multilevel lumbar spondylosis most notable at L5-S1 with loss of disc space height and possible spondylolysis. ) Radiology Impression Discussion of test interpretation with radiology: I have reviewed the radiologist's reading. Discharge Plan Discharge Clinical Impression: Lumbar radiculopathy, Sciatica Patient Disposition: Home, Self-Care Instructions: Lumbar Radiculopathy (ED) Additional Instructions: Refrain from heavy lifting strenuous exercising, bending. Rest, apply heating pad to the lower back, take the pain medication as instructed be aware that the pain medication will cause drowsiness and dizziness best time to take the pain medication is at bedtime at night. Prescriptions: New oxycodone 5 mg tablet 5 mg PO BID PRN (Reason: pain) Qty: 5 0RF Rx Instructions: Partial Fill upon patient request. No Action cefuroxime axetil 250 mg tablet 250 mg PO BID 3 Days Qty: 6 0RF ketorolac 10 mg tablet 10 mg PO TID PRN (Reason: pain) 5 Days Qty: 15 0RF tamsulosin [Flomax] 0.4 mg capsule 0.4 mg PO DAILY Qty: 14 0RF gabapentin 300 mg capsule 300 mg PO BID 14 Days Qty: 28 0RF Referrals: Mahendra Mojica MD [Primary Care Provider] - Stand Alone Forms: Work/School Release Print Language: Swedish
[2023-11-18 08:06] VITALS: BP 110/66; PULSE 64; RESP 18; O2SAT 95
[2023-11-18 08:12] LABS: Appearance Urine Clear; Color Urine Yellow; Glucose Urine UA Negative (Negative); Leukocyte Esterase Urine Negative (Negative); Nitrite Urine Negative (Negative); PH 5.5 (5.0-9.0); Urine Blood Negative (Negative); Urine Ketones Negative (Negative); Urine Protein Negative (Neg-Trace)
[2023-11-18 08:14] LABS: UPreg QC Valid YES; Urine Pregnancy NEGATIVE (NEGATIVE)
[2023-11-18] MEDS: Ibuprofen 600 MG TABLET PO (08:31)
[2023-11-18] MEDS: oxyCODONE HCl Immed Release 5 MG TABLET PO (08:31)
--- NOTE | 2023-11-18 08:35 | PC.NURSE ---
Pt. medicated per JUN. C/o 11/28 buttocks and leg pain at this time. Awaiting x-ray.
[2023-11-18 10:12] VITALS: BP 119/75; PULSE 61; RESP 18; TEMP 36.8; O2SAT 98
[2023-11-18 12:02] VITALS: BP 111/67; PULSE 69; RESP 18; O2SAT 96
[2023-11-18 12:09] VITALS: BP 111/67; PULSE 69; RESP 18; TEMP 36.8; O2SAT 96
== END 2023-11-18 12:10 | disposition home or self-care (01) ==
PROVIDERS: Emergency Provider Emergency Medicine; PCP Internal Medicine
DX: M54.42 Lumbago with sciatica, left side (principal); Z79.899 Other long term (current) drug therapy
CPT/HCPCS: 72100; 81003; 81025; 99283; 99284